=== PATIENT | female | born 1940 | race Caucasian/White ===

== ENCOUNTER → 2019-10-20 | Outpatient (CLI) | payer OTHER | END | disposition home or self-care (01) | LOC: RAH 12:17 | PROVIDERS: ATTEND Physical Medicine & Rehabilitation | DX: M43.16 Spondylolisthesis, lumbar region (principal); M47.816 Spondylosis without myelopathy or radiculopathy, lumbar region; M48.061 Spinal stenosis, lumbar region without neurogenic claudication | CPT/HCPCS: 72110 ==